=== PATIENT | female | born 1955 | race Caucasian/White ===

== ENCOUNTER → 2016-06-28 | Outpatient (CLI) | payer OTHER ==
[~2016-06-28] MED LIST: ACET-1311 PO; BISA10SU3 PR; CITA10TA4 PO; CITA40TA4 PO; ERGO500037 PO; MOML PO; MULT-506 PO; RISP0.258 PO; SODIENE PR; [UNRECOGNIZED DRUG - CODE] PO; [UNRECOGNIZED DRUG - CODE] TOP
[2016-06-28 10:17] LABS: BLOOD UREA NITROGEN 6 mg/dl (7-18); BUN/CREATININE RATIO 9.5 (10-20); CALCIUM 8.8 mg/dl (8.5-10.1); CARBON DIOXIDE 33 mmol/L (21-32); CHLORIDE 105 mmol/L (98-107); CREATININE 0.62 mg/dl (0.60-1.20); GLUCOSE 79 mg/dl (70-99); POTASSIUM 4.1 mmol/L (3.5-5.1); SODIUM 144 mmol/L (136-145)
[2016-06-28 10:20] LABS: ALB/GLOB RATIO 0.7 (0.9-2); ALKALINE PHOSPHATASE 92 U/L (45-117); ALT/SGPT 15 U/L (12-78); AST/SGOT 14 U/L (15-37)
== END | disposition home or self-care (01) ==
LOC: C.LABUPNIT 09:39
PROVIDERS: ATTEND Family Medicine
DX: I10 Essential (primary) hypertension (principal)

== ENCOUNTER → 2016-07-21 | Outpatient (CLI) | payer OTHER ==
--- NOTE | 2016-07-21 16:13 | MAMMOGRAPHY REPORT ---
BILATERAL FIRST EVER DIGITAL SCREENING MAMMOGRAM WITH CAD: 07/21/2016 CLINICAL HISTORY: Routine screening examination. TECHNIQUE: Bilateral CC and MLO views were attempted. Current study was also evaluated with a Compu ter Aided Detection (CAD) system. COMPARISON: No prior exams were available for comparison. BREAST COMPOSITION: There are scattered areas of fibroglandular density in both breasts. FINDINGS: The exam is markedly suboptimal due to inability of the patient to position for the exam as well as patient motion despite 2 mammography technologists assisting the patient. The MLO views of large amount of posterior tissue. Within the limitations of the exam, there are dermal calcifica tions identified within the left breast. No suspicious mass, architectural distortion or cluster of microcalcifications is seen. IMPRESSION: ACR BI-RADS CATEGORY 1: NEGATIVE Markedly suboptimal exam due to inability of the patient to position for the views as well as patien t motion despite assistance from mammography technologists. Within this limitation, there is no sharmin dence of malignancy within the visualized portions of the breasts. A 1 year screening mammogram is r ecommended. The patient will receive written notification of the results. Approximately 10% of breast cancers are not detected with mammography. A negative mammographic repor t should not delay biopsy if a clinically suggestive mass is present. Leticia Huerta M.D. ay/:07/21/2016 14:38:57 Hospital Admissions Officer: Unique TIAN)(Yoly), [facility] letter sent: Normal 1/2 BI-RADS Code: ACR BI-RADS Category 1: Negative
== END | disposition home or self-care (01) ==
LOC: C.MAMM 13:20
PROVIDERS: ATTEND Family Medicine
DX: Z12.31 Encounter for screening mammogram for malignant neoplasm of breast (principal)

== ENCOUNTER → 2016-11-10 | Outpatient (CLI) | payer OTHER ==
[2016-11-10 09:43] LABS: BASO % 0.5 %; BASO ABS # 0.03 K/uL (0-0.2); COMPLETE YES; EOS % 2.9 %; HEMATOCRIT 41.4 % (37-47); IG% 0.2 %; LYMPH % 32.7 %; MEAN CORPUSCULAR HEMOGLOBIN 30.5 pg (25-34); MEAN CORPUSCULAR HGB CONC 32.1 g/dl (32-36); MEAN PLATELET VOLUME 9.5 fL (7.4-10.4); MONO % 9.5 %; NEUT % 54.2 %; PLATELET COUNT 322 K/uL (130-400); RED BLOOD COUNT 4.36 M/uL (4.2-5.4); WHITE BLOOD COUNT 6.12 K/uL (4.8-10.8)
[2016-11-10 10:10] LABS: ALT/SGPT 13 U/L (12-78); AST/SGOT 10 U/L (15-37); BLOOD UREA NITROGEN 5 mg/dl (7-18); BUN/CREATININE RATIO 8.6 (10-20); CARBON DIOXIDE 34 mmol/L (21-32); CHLORIDE 108 mmol/L (98-107); CREATININE 0.59 mg/dl (0.60-1.20); GLUCOSE 81 mg/dl (70-99); SODIUM 145 mmol/L (136-145)
[2016-11-10 10:21] LABS: ALB/GLOB RATIO 0.8 (0.9-2); ALKALINE PHOSPHATASE 95 U/L (45-117)
--- NOTE | 2016-11-18 11:13 | CODING QUERY MEDICAL NECESSITY ---
CQSUPPORTING DIAGNOSIS NEEDED A supporting diagnosis is required for the test/procedure performed on this patient in order for us to be reimbursed by the patient's insurance. Please provide a supporting diagnosis for the following test/procedure listed below next to the test name along with your signature. *If there is no additional diagnosis for this patient that would support the following test/procedure please document that below next to the test/procedure. Test(s)/Procedure(s) that require a supporting diagnosis: DOS 11/10/16 VITAMIN D TEST Provider Signature: Date: Thank you Michelle Cuellar Health Information Management Once completed, please kindly fax back to [phone] For questions please call [phone]
== END | disposition home or self-care (01) ==
LOC: C.LABUPUNI 08:52
PROVIDERS: ATTEND Family Medicine
DX: F41.9 Anxiety disorder, unspecified (principal); I10 Essential (primary) hypertension; R41.89 Other symptoms and signs involving cognitive functions and awareness; E56.8 Deficiency of other vitamins; E55.9 Vitamin D deficiency, unspecified

== ENCOUNTER 2025-04-12 19:09 | Inpatient (IN) ==
--- NOTE | 2025-04-12 19:29 | Emergency Department Note ---
Impression & Plan Acute pyelonephritis, Fever ED Provider Note NAME: TUNG HERRING AGE: 69 SEX: F : 1955 ARRIVES VIA: Ambulance INFORMANT: Patient, EMS ED PROVIDER(S): Luis Armando Price DO CHIEF COMPLAINT: Fever HPI: The patient is a 69-year-old female who has a history of dementia as well as stroke in the past who presented to the emergency department for fever. The patient is unable to give any history. This is her baseline according to the prehospital personnel. It is unclear what interventions were done prior to the patient coming to the emergency department. ROS: See above HPI for pertinent positives & negatives. A total of 10 systems reviewed and were otherwise negative. PAST MEDICAL HISTORY: See Below PAST SURGICAL HISTORY: See Below FAMILY HISTORY: See Below SOCIAL HISTORY: See Below HOME MEDICATIONS: See Below ALLERGIES: See Below VITALS: See Below PHYSICAL EXAMINATION: GENERAL: The patient is awake to verbal commands. She does not answer questions or follow commands. EYES: The conjunctivae are clear. The pupils are round and reactive. EARS, NOSE, MOUTH AND THROAT: The nose is without any evidence of any deformity. Mucous membranes are dry. NECK: The neck is nontender and supple. RESPIRATORY: Diminished breath sounds with rales are noted throughout. There is no retractions. CARDIOVASCULAR: Regular rate and rhythm noted there no murmurs rubs or gallops normal S1 normal S2. GASTROINTESTINAL: The abdomen is soft. Abdomen is nontender. MUSCULOSKELETAL/EXTREMITIES: There is no evidence of gross deformity full range of motion is noted in the hips and shoulders. SKIN: Skin is warm and dry. There is no significant pedal edema. NEUROLOGIC: The patient is awake to verbal commands. She does not answer questions or follow commands. I am unable to assess orientation at this time. MEDICAL DECISION MAKING: The patient is a 69-year-old female who presented to the emergency department for an evaluation of fever. The patient has a history of stroke in the past. She also has a history of head injury. She does not communicate well. The patient did not have any abdominal tenderness on physical exam. The patient's lung sounds were abnormal but ultimately she was found have signs of urinary tract infection on urinalysis. The patient was treated with IV fluids and IV antibiotics. She was reevaluated multiple times. I discussed her condition with the on-call [facility] hospitalist. They have agreed to evaluate the patient in the emergency department for further management and disposition. Triage Nursing notes reviewed. Prior medical records reviewed Vital Signs: reviewed and remarkable for tachycardia and fever. Differential diagnosis: Viral syndrome, otitis, pharyngitis, pneumonia, influenza, meningitis, urinary tract infection, sepsis, bacteremia, as well as other pathologies. ER treatment provided: See below Diagnostics interpreted by me: ECG: EKG was obtained in the emergency department. My interpretation is sinus tachycardia at 109 bpm. There is no ectopy. Nonspecific ST abnormalities were noted. This was compared to a tracing from February 03, 2014. No changes were noted. Cardiac Monitoring: An order was placed for continuous cardiac monitoring. The monitor shows a rate of 109 bpm with sinus tachycardia. Laboratory studies: As stated above and show below. Imaging studies: See below. Radiographic imaging was reviewed by myself Consultation(s): Dr. De Guzman was notified about the patient. He will evaluate the patient in the emergency department. Past Med/Surg History Problem List (Updated 04/12/25 @ 22:27 by Tami Kurtz PA-C) RLL pneumonia Sepsis Fever (Acute) Acute pyelonephritis (Acute) Dementia (Chronic) Leg swelling (Acute) MR (mental retardation) (Chronic) Right ankle sprain (Acute) Frequent falls (Acute) Forehead abrasion (Acute) UTI (urinary tract infection) (Acute) Head injury (Acute) Right ankle sprain (Acute) Frequent falls (Acute) Forehead abrasion (Acute) UTI (urinary tract infection) (Acute) Head injury (Acute) Diarrhea (Acute) Diarrhea (Acute) Stroke-like symptoms (Acute) Stroke-like symptoms (Acute) Weakness (Acute) Social History Smoking Status: Unknown if ever smoked Feels Safe at Home: Yes Allergies Allergies Allergy/AdvReac Type Severity Reaction Status Date / Time No Known Allergies Allergy Unverified 02/18/17 12:08 Home Meds Home Medications Medication Instructions Recorded Confirmed Acetaminophen (Tylenol) 650 mg PO Q4H PRN Pain or Fever #0 05/22/15 tabs BISACODYL (DULCOLAX) 1 supp NE UD PRN Constipation ##0 05/22/15 MAGNESIUM HYDROXIDE (MILK OF 30 ml PO UD PRN Constipation #0 mL 05/22/15 MAGNESIA) Sodium Phosphate/Biphosphate 1 dose NE UD PRN Constipation #0 05/22/15 (Fleet Enema) BTLS Citalopram (Citalopram 1 tab PO DAILY 90 days #90 tabs 02/18/17 Hydrobromide) ERGOCALCIFEROL (VITAMIN D 02209 50,000 unit PO DAILY #0 caps 02/18/17 UNIT) Multivitamin 1 tab PO DAILY #0 tabs 02/18/17 Risperidone (Risperdal) 0.25 mg PO BID #0 tabs 02/18/17 Results & Data (ED) Vital Signs Vital Signs - 24 hr 04/12/25 19:27 04/12/25 20:05 04/12/25 20:05 Temperature 38.4 C H Temperature Source Rectal Pulse Rate 113 H 109 H 109 H Pulse Rhythm Regular Regular Pulse Strength Normal Respiratory Rate 26 H 28 H Respiratory Effort / Characteristics Non-Labored Spontaneous Respiratory Depth Shallow Respiratory Pattern Regular Blood Pressure 115/88 Blood Pressure Mean 97 Blood Pressure Position Lying Pulse Oximetry 95 94 Oxygen Delivery Method Room Air Room Air Sepsis Recent Fever Within 48 Hours Yes Sepsis New/Unexplained Change in Mental Status No Sepsis Action Taken by Nursing Physician Notified Home Medications Current Medication List: was personally reviewed by me Laboratory Data Attestation: I reviewed the patient's lab results. 04/12/25 19:53 04/12/25 19:53 Lab Results 04/12/25 04/12/25 04/12/25 Range/Units 19:53 20:14 21:05 WBC 16.32 H (4.8-10.8) K/ul RBC 5.10 (4.20-5.40) M/uL Hgb 15.6 (12.0-16.0) g/dl Hct 46.8 (37.0-47.0) % MCV 91.8 (80.0-100.0) fL MCH 30.6 (25.0-34.0) pg MCHC 33.3 (32.0-36.0) g/dL RDW Std Deviation 47.8 H (36.4-46.3) fL RDW Coeff of Clem 14.0 (11.5-14.5) % Plt Count 275 (130-400) K/uL MPV 9.4 (9.4-12.4) fL Immature Gran % (Auto) 0.5 % Neut % (Auto) 92.4 % Lymph % (Auto) 3.6 % [place] % (Auto) 3.1 % Eos % (Auto) 0.2 % Baso % (Auto) 0.2 % Neut # (Auto) 15.07 H (1.40-6.50) K/uL Lymph # (Auto) 0.58 L (1.20-3.40) K/uL Lau[place] # (Auto) 0.51 (0.11-0.59) K/uL Eos # (Auto) 0.04 (0.00-0.50) K/uL Baso # (Auto) 0.04 (0.00-0.20) K/uL Immature Gran # (Auto) 0.08 (0.01-0.20) K/uL PT 10.1 (9.0-12.0) Seconds INR 1.0 (0.9-1.1) APTT 25 (21-31) Seconds PTT Ratio 0.9 VBG pH 7.36 (7.36-7.41) VBG pCO2 52 H (38-50) mmHg VBG pO2 35 mmHg VBG HCO3 29 mmol/L VBG O2 Saturation 60.6 % VBG Base Excess 2.8 mEq/L Sodium 142 (136-145) mmol/L Potassium 4.1 (3.5-5.1) mmol/L Chloride 104 (98-107) mmol/L Carbon Dioxide 29 (21-32) mmol/L Anion Gap 9 (3-11) BUN 13 (6-23) mg/dl Creatinine 0.59 L (0.6-1.2) mg/dl Est Cr Clr Drug Dosing Not Reportable eGFR 97.50 BUN/Creatinine Ratio 22.0 H (10-20) Glucose 123 H (70-99(Fasting)) mg/dl Lactate 2.7 H* (0.4-2.0) mmol/L Calcium 9.3 (8.6-10.3) mg/dl Magnesium 1.9 (1.7-2.4) mg/dl Total Bilirubin 0.4 (0.2-1.0) mg/dl Direct Bilirubin 0.1 (0-0.2) mg/dl AST 34 (13-39) U/L ALT 26 (7-52) U/L Alkaline Phosphatase 120 H (34-104) U/L Troponin I High Sens 8.8 (0-14) pg/ml Total Protein 7.0 (6.0-8.3) gm/dl Albumin 3.2 L (3.4-5.0) gm/dl Procalcitonin 0.71 H (0-0.5) ng/ml Urine Color Yellow Urine Appearance Cloudy A (Clear) Urine pH 5.0 (4.5-7.5) Ur Specific [place] 1.019 (1.000-1.030) Urine Protein Trace H (Negative) Urine Glucose (UA) Negative (Negative) Urine Ketones Negative (Negative) Urine Blood 1+ H (Negative) Urine Nitrite Negative (Negative) Urine Bilirubin Negative (Negative) Urine Urobilinogen Negative (Negative) Ur Leukocyte Esterase 2+ H (Negative) Urine WBC (Auto) >50 H (0-5) /hpf Urine RBC (Auto) 6-10 H (0-2) /hpf U Hyaline Cast (Auto) 0-2 (0-2) /lpf U Epithel Cells (Auto) 0-2 (0-2) /hpf Urine Bacteria (Auto) 4+ H (None Seen) Urine Comment SARS-CoV-2 (PCR) NEGATIVE (Negative) Influenza Type A (PCR) Negative (Neg) Influenza Type B (PCR) Negative (Neg) RSV (RT-PCR) Negative (Neg) 04/12/25 Range/Units 21:53 WBC (4.8-10.8) K/ul RBC (4.20-5.40) M/uL Hgb (12.0-16.0) g/dl Hct (37.0-47.0) % MCV (80.0-100.0) fL MCH (25.0-34.0) pg MCHC (32.0-36.0) g/dL RDW Std Deviation (36.4-46.3) fL RDW Coeff of Clem (11.5-14.5) % Plt Count (130-400) K/uL MPV (9.4-12.4) fL Immature Gran % (Auto) % Neut % (Auto) % Lymph % (Auto) % [place] % (Auto) % Eos % (Auto) % Baso % (Auto) % Neut # (Auto) (1.40-6.50) K/uL Lymph # (Auto) (1.20-3.40) K/uL [place] # (Auto) (0.11-0.59) K/uL Eos # (Auto) (0.00-0.50) K/uL Baso # (Auto) (0.00-0.20) K/uL Immature Gran # (Auto) (0.01-0.20) K/uL PT (9.0-12.0) Seconds INR (0.9-1.1) APTT (21-31) Seconds PTT Ratio VBG pH (7.36-7.41) VBG pCO2 (38-50) mmHg VBG pO2 mmHg VBG HCO3 mmol/L VBG O2 Saturation % VBG Base Excess mEq/L Sodium (136-145) mmol/L Potassium (3.5-5.1) mmol/L Chloride (98-107) mmol/L Carbon Dioxide (21-32) mmol/L Anion Gap (3-11) BUN (6-23) mg/dl Creatinine (0.6-1.2) mg/dl Est Cr Clr Drug Dosing eGFR BUN/Creatinine Ratio (10-20) Glucose (70-99(Fasting)) mg/dl Lactate 2.1 H* (0.4-2.0) mmol/L Calcium (8.6-10.3) mg/dl Magnesium (1.7-2.4) mg/dl Total Bilirubin (0.2-1.0) mg/dl Direct Bilirubin (0-0.2) mg/dl AST (13-39) U/L ALT (7-52) U/L Alkaline Phosphatase (34-104) U/L Troponin I High Sens (0-14) pg/ml Total Protein (6.0-8.3) gm/dl Albumin (3.4-5.0) gm/dl Procalcitonin (0-0.5) ng/ml Urine Color Urine Appearance (Clear) Urine pH (4.5-7.5) Ur Specific [place] (1.000-1.030) Urine Protein (Negative) Urine Glucose (UA) (Negative) Urine Ketones (Negative) Urine Blood (Negative) Urine Nitrite (Negative) Urine Bilirubin (Negative) Urine Urobilinogen (Negative) Ur Leukocyte Esterase (Negative) Urine WBC (Auto) (0-5) /hpf Urine RBC (Auto) (0-2) /hpf U Hyaline Cast (Auto) (0-2) /lpf U Epithel Cells (Auto) (0-2) /hpf Urine Bacteria (Auto) (None Seen) Urine Comment SARS-CoV-2 (PCR) (Negative) Influenza Type A (PCR) (Neg) Influenza Type B (PCR) (Neg) RSV (RT-PCR) (Neg) Administered Medications Discontinued Medications Acetaminophen (Ofirmev) 1,000 mg in 100 mls @ 400 mls/hr IV NOW STA Stop: 04/12/25 19:33 Last Infusion: 04/12/25 20:19 Dose: Infused Documented By: Admin: 04/12/25 20:04 Dose: 400 mls/hr Documented By: JAQUAN Sodium Chloride (Nss) 1,000 mls @ 999 mls/hr IV .Q1H1M ONE Stop: 04/12/25 21:13 Last Infusion: 04/12/25 21:19 Dose: Infused Documented By: Admin: 04/12/25 20:18 Dose: 999 mls/hr Documented By: alessandra Ceftriaxone Sodium (Rocephin) 2,000 mg in 50 mls @ 100 mls/hr IV NOW STA Stop: 04/12/25 21:06 Last Infusion: 04/12/25 22:22 Dose: Infused Documented By: Admin: 04/12/25 21:52 Dose: 100 mls/hr Documented By: alessandra Imaging Data Attestation: I personally reviewed and interpreted this imaging study as follows: My Impression: 1 view chest x-ray was obtained in the emergency department. My interpretation is no free air or definite infiltrate, final report below. Radiologist's Impression: Chest X-Ray 04/12/25 19:14 Chest radiograph, one view History: Sepsis. Comparison: None. Findings: Partially included intramedullary orthopedic hardware left humerus. Lower thoracic spine fusion hardware. Cardiomediastinal silhouette is otherwise normal. Confluent or social densities bilateral pulmonary bases right greater than left. Pulmonary vasculature is normal. Remaining lungs are clear. Blunting bilateral costophrenic angles. Remote posterior lateral right rib fractures. Impression: Nonspecific bibasilar confluent interstitial opacities with small effusions. Pneumonia not excluded. Electronically signed by Beto Monroy 04-12-2025 8:51 PM Discharge Plan Visit Data Chief Complaint: Fever Stated Complaint: FEVER ED Provider: Luis Armando Price Discharge Problem: Acute pyelonephritis, Fever Patient Disposition: Being Evaluated by Hospitalist Condition: Fair Forms Stand Alone Forms: My [facility] Prescriptions Prescriptions: No Action Acetaminophen (Tylenol) 325 MG tablet 650 mg PO Q4H PRN (Reason: Pain or Fever) Qty: 0 Patient Comments: APPLY NEEDED FOR MILD PAIN OR FOR ELEVATED TEMPERATURE GREATER THAN 101 F. DO NOT EXCEED 3 GM APAP/24 HOURS. BISACODYL (DULCOLAX) 10 MG SUP 1 supp NE UD PRN (Reason: Constipation) Qty: 0 Patient Comments: NEEDED FOR NO BOWEL MOVEMENT IN 4 DAYS. MAGNESIUM HYDROXIDE (MILK OF MAGNESIA) 30 ML suspension 30 ml PO UD PRN (Reason: Constipation) Qty: 0 Patient Comments: NEEDED FOR NO BOWEL MOVEMENT IN 9 SHIFTS. Sodium Phosphate/Biphosphate (Fleet Enema) MELITA 1 dose NE UD PRN (Reason: Constipation) Qty: 0 Patient Comments: IF AFTER 4 HOURS DULCOLAX SUPPOSITORY WAS INEFFECTIVE GIVE FLEET ENEMA. Citalopram (Citalopram Hydrobromide) 40 MG tablet 1 tab PO DAILY 90 Days Qty: 90 ERGOCALCIFEROL (VITAMIN D 44162 UNIT) 50,000 UNIT capsule 50,000 unit PO DAILY Qty: 0 Multivitamin tablet 1 tab PO DAILY Qty: 0 Risperidone (Risperdal) 0.25 MG tablet 0.25 mg PO BID Qty: 0 Referrals Referrals: [facility] [Primary Care Provider] -
[2025-04-12] MEDS: ACETAMINOPHEN 1,000 MG/100 ML VIAL IV STA (20:04)
[2025-04-12 20:05] LABS: Base Excess VBG 2.8 mEq/L; HCO3 VBG 29 mmol/L; Oxygen Saturation VBG 60.6 %; PCO2 VBG 52 mmHg (38-50); PO2 VBG 35 mmHg; pH VBG 7.36 (7.36-7.41)
[2025-04-12 20:12] LABS: Hematocrit (blood only) 46.8 % (37.0-47.0); Hemoglobin 15.6 g/dl (12.0-16.0); Mean Corpuscular Hemoglobin 30.6 pg (25.0-34.0); Mean Corpuscular Volume 91.8 fL (80.0-100.0); Platelet Count 275 K/uL (130-400); RDW Standard Deviation 47.8 fL (36.4-46.3); Red Blood Count 5.10 M/uL (4.20-5.40); White Blood Count 16.32 K/ul (4.8-10.8)
[2025-04-12] MEDS: SODIUM CHLORIDE 0.9% 1,000 ML IV ONE (20:18)
[2025-04-12 20:30] LABS: Alanine Aminotransferase 26 U/L (7-52); Albumin Level 3.2 gm/dl (3.4-5.0); Alkaline Phosphatase 120 U/L (34-104); Anion Gap 9 (3-11); Bilirubin,Total 0.4 mg/dl (0.2-1.0); Blood Urea Nitrogen 13 mg/dl (6-23); Calcium 9.3 mg/dl (8.6-10.3); Carbon Dioxide 29 mmol/L (21-32); Chloride 104 mmol/L (98-107); Glucose 123 mg/dl (70-99(Fasting)); Magnesium 1.9 mg/dl (1.7-2.4); Potassium 4.1 mmol/L (3.5-5.1); Sodium 142 mmol/L (136-145); Total Protein 7.0 gm/dl (6.0-8.3)
[2025-04-12 20:33] LABS: Immature Granulocytes # (auto) 0.08 K/uL (0.01-0.20); Immature Granulocytes % (auto) 0.5 %
[2025-04-12 20:38] LABS: INR 1.0 (0.9-1.1); Partial Thromboplastin Time 25 Seconds (21-31); Prothrombin Time 10.1 Seconds (9.0-12.0)
--- NOTE | 2025-04-12 20:53 | XRay Report ---
Chest radiograph, one view History: Sepsis. Comparison: None. Findings: Partially included intramedullary orthopedic hardware left humerus. Lower thoracic spine fusion hardware. Cardiomediastinal silhouette is otherwise normal. Confluent or social densities bilateral pulmonary bases right greater than left. Pulmonary vasculature is normal. Remaining lungs are clear. Blunting bilateral costophrenic angles. Remote posterior lateral right rib fractures. Impression: Nonspecific bibasilar confluent interstitial opacities with small effusions. Pneumonia not excluded. Electronically signed by Beto Monroy 04-12-2025 8:51 PM
[2025-04-12 21:13] LABS: Influenza A virus by PCR Negative (Neg); Influenza B virus by PCR Negative (Neg); SARS CoV2 RNA(COVID-19) Ceph NEGATIVE (Negative)
[2025-04-12] MEDS: cefTRIAXone SODIUM 2,000 MG/50 ML BAG IV STA (21:52)
--- NOTE | 2025-04-12 22:00 | History & Physical Report ---
Date of Service April 12, 2025 Assessment & Plan (1) Sepsis: (2) UTI (urinary tract infection): (3) RLL pneumonia: (4) Dementia: Plan Patient is a 69-year-old female with a past medical history of TBI/dementia and is nonverbal at baseline. She presented via EMS from [facility] as they were concerned for a febrile seizure given she has a reported history of. She was found to meet SIRS criteria with a source secondary to UTI and possible right lower lobe pneumonia. #Sepsis/UTI/RLL PNA - UA concerning for infection with 2+ LE, >50 WBC, +4 bacteria. CXR read as nonspecific bibasilar opacities with small effusion (PNA cannot be excluded); reviewed personally and appears as though patient has RLL pneumonia. Non-hypoxic at time of admission, VBG WNL. Renal function stable. + SIRS: WBC 16.32 with neutrophil predominance, tachypneic (RR 28) tachycardic (rate 113), febrile 38.4C on arrival to ED - lactate 2.7 -> 2.1 after 1L NSS; repeat with am labs - procal 0.71 - Sepsis fluid bolus for actual body weight = 1983.00mL - given 1L NSS in ED - additional 1L NSS bolus ordered - Continue fluid resuscitation overnight with LR @ 125 ml/hr x 2L - No previous positive cultures within EMR - Given Rocephin 2G IV in the ED; will transition to Unasyn to cover for possible aspiration pneumonia - MRSA nares ordered, add coverage if positive - duo-nebs prn - Follow blood and urine culture - Trend CBC - Tylenol prn for fever - Given concern for aspiration and appears as though patient would be unable to tolerate p.o. intake based on clinical exam on admission Will make n.p.o., hold p.o. medications, aspiration precautions, and speech eval #Hx TBI/moderate dementia with mood disturbances - Reportedly nonverbal at baseline. Responds to verbal stimuli, unable to follow commands on admission. - holding risperidone and Cymbalta with above - fall and aspiration precautions - at higher risk for hospital acquired delirium - promote good sleep wake cycles, oob as tolerated, etc. #Hx febrile seizures - sent from nursing facility due to concern for this with history. Unclear as to patient's history. - given patient's age, low concern - Tylenol prn VTE ppx: Lovenox daily Dispo: PCU Admission and Anticipated Discharge Date Admission Date: 04/12/25 History of Present Illness Chief Complaint: fever Primary Care Provider: [facility] Patient is a 69-year-old female with a past medical history of TBI/dementia and is nonverbal at baseline. She presented via EMS from [facility] as they were concerned for a febrile seizure given she has a reported history of. She was found to meet SIRS criteria with a source secondary to UTI and possible right lower lobe pneumonia. Patient seen at bedside. She is nonverbal however responds to verbal stimuli. She is unable to follow any commands. There is no family at bedside. Report from [facility] reportedly that they were concerned about a febrile seizure because she has a history of. Unable to obtain any ROS. Medical records reviewed. POLST form reviewed DNR/DNI with limited measures, agreeable to IV ABX and IV fluids. Allergies Allergy/AdvReac Type Severity Reaction Status Date / Time No Known Allergies Allergy Unverified 02/18/17 12:08 Home Medications Medication Instructions Recorded Confirmed Type Acetaminophen (Tylenol) 650 mg PO Q4H PRN Pain or Fever #0 05/22/15 History tabs BISACODYL (DULCOLAX) 1 supp DC UD PRN Constipation ##0 05/22/15 History MAGNESIUM HYDROXIDE (MILK OF 30 ml PO UD PRN Constipation #0 mL 05/22/15 History MAGNESIA) Sodium Phosphate/Biphosphate 1 dose DC UD PRN Constipation #0 05/22/15 History (Fleet Enema) BTLS Citalopram (Citalopram 1 tab PO DAILY 90 days #90 tabs 02/18/17 History Hydrobromide) ERGOCALCIFEROL (VITAMIN D 96264 50,000 unit PO DAILY #0 caps 02/18/17 History UNIT) Multivitamin 1 tab PO DAILY #0 tabs 02/18/17 History Risperidone (Risperdal) 0.25 mg PO BID #0 tabs 02/18/17 History Past Med/Surg History Problem List (Updated 04/12/25 @ 22:27 by Tami Kurtz PA-C) RLL pneumonia Sepsis Fever (Acute) Acute pyelonephritis (Acute) Dementia (Chronic) Leg swelling (Acute) MR (mental retardation) (Chronic) Right ankle sprain (Acute) Frequent falls (Acute) Forehead abrasion (Acute) UTI (urinary tract infection) (Acute) Head injury (Acute) Right ankle sprain (Acute) Frequent falls (Acute) Forehead abrasion (Acute) UTI (urinary tract infection) (Acute) Head injury (Acute) Diarrhea (Acute) Diarrhea (Acute) Stroke-like symptoms (Acute) Stroke-like symptoms (Acute) Weakness (Acute) Social History Smoking Status: Unknown if ever smoked Hx Alcohol Use: No Hx Substance Use: No Preferred Language: Pashto Communication Ability: Impaired Chief Operating Officer Required: No Beliefs That Will Affect Care: None Current Living Situation: Senior Living Other Information That Helps Us Care for You: No Feels Safe at Home: Yes Safety Concerns: Feels Safe At This Time Assistive Devices: Mechanical Lift and Wheelchair Review of Systems Review of Systems: see HPI Physical Exam Physical Exam: The patient is sleeping, responds to verbal stimuli, unable to follow commands. HEENT- Mucous membranes dry. Hearing grossly intact. Heart-normal S1 and S2. No murmurs, rubs or gallops. Lungs-decreased bilaterally, no respiratory distress, no accessory muscle use. Abdomen-normal bowel sounds and soft. No ascites noted. Non-tender. Extremities- no clubbing, cyanosis, or edema. Results & Data Results & Data Vital Signs (Past 12 Hours) Vital Signs Temp Pulse Resp BP Pulse Ox O2 Del Method 04/12/25 20:05 109 H 28 H 94 Room Air 04/12/25 20:05 38.4 C H 109 H 26 H 115/88 95 Room Air 04/12/25 19:27 113 H Laboratory Results Reviewed CBC, PT/INR, CMP, Pro-Santos, covid/flu/rsv swab, UA, troponin, mag, VBG, lactate Diagnostic Findings reviewed CXR Medications Administered ED - Rocephin 2g IV, 1L NSS bolus, tylenol 1g IV admission - 1L NSS bolus, LR @ 125 ml/hr, unasyn ECG Additional Comments: sinus tachycardia rate 109 qtc 425 Code Status & VTE Plan Code Status DNR/DNI VTE Prophylaxis Plan VTE Prophylaxis will be ordered: Yes Supervising Physician Co-Signing Physician Notes Attending addendum: I have physically seen this patient, have supervised the EMMANUEL's activities, and agree with the H&P unless as otherwise noted. Assessment and Plan: The patient is a 69-year-old female with past medical history including TBI/de mentia, and is nonverbal at baseline. She was referred to the emergency department from [facility] via EMS, due to concerns regarding a possible febrile seizure. Evaluation in the emergency department included findings of urinary tract infection, and pneumonia, suggestive of SIRS. Sepsis/UTI/right lower lobe pneumonia- Follow urine culture sensitivity Follow sputum culture sensitivity Follow-up blood culture and sensitivity Lactate 2.7 follow-up 2.1 after 1 L normal saline bolus, will repeat in the a.m. Patient to receive additional 1 L normal saline bolus, then maintenance LR at 125 mL/h. Given Rocephin 2 g IV in ED Admit on Unasyn 3 g IV every 6 hours MRSA swab ordered and pending DuoNebs every 2 hours as needed Acetaminophen 650 mg by mouth every 6 hours as needed for mild pain or fever N.p.o. due to concerns regarding possible aspiration Speech evaluation History of TBI/moderate dementia with mood disturbance- Nonverbal at baseline Does respond to verbal stimuli Hold risperidone and Cymbalta for now History of febrile seizures- Seizure protocol. Noted during admission, will order appropriate testing EEG and MRI of brain Acetaminophen 650 mg by mouth every 6 hours as needed for mild pain or fever Remaining orders and notations as noted PG Care Time/CCT Total # of Minutes Spent Total Time Spent with Patient: Total time spent is greater than 50% in coordination of care (as documented) at patient's floor/unit and/or counseling patient: Coding Level of Care Code 10273 INT INP/OBS CARE 3/75MIN Diagnoses Sepsis A41.9 UTI (urinary tract infection) N39.0 RLL pneumonia J18.9 Dementia F03.90
[2025-04-12 22:03] LABS: Appearance Urine Cloudy (Clear); Bacteria Urine Automated 4+ (None Seen); Cast Urine Automated 0-2 /lpf (0-2); Epithelial Cell Urine Auto 0-2 /hpf (0-2); Glucose Urine UA Negative (Negative); WBC Urine Automated >50 /hpf (0-5)
[2025-04-12] MEDS: LACTATED RINGER'S 1,000 ML IV SCH (22:43)
[2025-04-12] MEDS: SODIUM CHLORIDE 0.9% 1,000 ML IV SCH (22:50)
[2025-04-13] MEDS ORDERED: ONDANSETRON INJ 2 MG/ML 2 ML VIAL IV PRN (00:59)
[2025-04-13] MEDS ORDERED: ACETAMINOPHEN 1,000 MG/100 ML VIAL IV PRN (00:59)
[2025-04-13] MEDS ORDERED: ALBUT/IPRATROP 3MG/0.5MG NEB 3 ML VIAL NEB PRN (00:59)
[2025-04-13] MEDS: Patient's HEIGHT &/or WEIGHT Needed STA (04:14)
[2025-04-13] MEDS: AMPICILLIN/SULBACTAM SOD 3,000 MG/100 ML BAG IV SCH (04:35)
[2025-04-13 06:24] LABS: Hematocrit (blood only) 45.5 % (37.0-47.0); Hemoglobin 14.2 g/dl (12.0-16.0); Immature Granulocytes # (auto) 0.15 K/uL (0.01-0.20); Immature Granulocytes % (auto) 0.7 %; Mean Corpuscular Hemoglobin 29.1 pg (25.0-34.0); Mean Corpuscular Volume 93.2 fL (80.0-100.0); Platelet Count 180 K/uL (130-400); RDW Standard Deviation 49.1 fL (36.4-46.3); Red Blood Count 4.88 M/uL (4.20-5.40); White Blood Count 23.06 K/ul (4.8-10.8)
[2025-04-13 06:41] LABS: Alanine Aminotransferase 23.0 U/L (7-52); Albumin Globulin Ratio 0.8 (0.9-2); Albumin Level 2.8 gm/dl (3.4-5.0); Alkaline Phosphatase 88.0 U/L (34-104); Anion Gap 5.0 (3-11); Bilirubin,Total 0.5 mg/dl (0.2-1.0); Blood Urea Nitrogen 11.0 mg/dl (6-23); Calcium 8.8 mg/dl (8.6-10.3); Carbon Dioxide 27.0 mmol/L (21-32); Chloride 109.0 mmol/L (98-107); Creatinine Clr Calc Pharmacy 86.5 ml/min; Globulin 3.4 gm/dl (2.5-4.0); Glucose 124.0 mg/dl (70-99(Fasting)); Magnesium 1.8 mg/dl (1.7-2.4); Potassium 4.4 mmol/L (3.5-5.1); Sodium 141.0 mmol/L (136-145); Total Protein 6.2 gm/dl (6.0-8.3)
[2025-04-13] MEDS: ENOXAPARIN INJ 40 MG/0.4 ML SYR SQ SCH (07:34)
--- NOTE | 2025-04-13 09:13 | Hospitalist Progress Note ---
Date of Service April 13, 2025 Assessment & Plan (1) Sepsis: (2) UTI (urinary tract infection): (3) RLL pneumonia: (4) Dementia: Plan Patient is a 69-year-old female with a past medical history of TBI/dementia and is nonverbal at baseline. She presented via EMS from [facility] as they were concerned for a febrile seizure given she has a reported history of. She was found to meet SIRS criteria with a source secondary to UTI and possible right lower lobe pneumonia. #Sepsis/UTI/RLL PNA - UA concerning for infection with 2+ LE, >50 WBC, +4 bacteria. CXR read as nonspecific bibasilar opacities with small effusion (PNA cannot be excluded); reviewed personally and appears as though patient has RLL pneumonia. Non-hypoxic at time of admission, VBG WNL. Renal function stable. + SIRS: WBC 16.32 with neutrophil predominance, tachypneic (RR 28) tachycardic (rate 113), febrile 38.4C on arrival to ED - lactate 2.7 -> 2.1 after 1L NSS; repeat with am labs - procal 0.71 - Sepsis fluid bolus for actual body weight = 1983.00mL - given 1L NSS in ED - additional 1L NSS bolus ordered - Continue fluid resuscitation overnight with LR @ 125 ml/hr x 2L - No previous positive cultures within EMR - Given Rocephin 2G IV in the ED; started on Unasyn, but will change to Zosyn given rising WBC and lactate - MRSA neg - duo-nebs prn - Follow blood and urine culture - Trend CBC - Tylenol prn for fever - Given concern for aspiration and appears as though patient would be unable to tolerate p.o. intake based on clinical exam on admission Will make n.p.o., hold p.o. medications, aspiration precautions, and speech eval #Hx TBI/moderate dementia with mood disturbances - Reportedly nonverbal at baseline. Responds to verbal stimuli, unable to follow commands on admission. - holding risperidone and Cymbalta with above - fall and aspiration precautions - at higher risk for hospital acquired delirium - promote good sleep wake cycles, oob as tolerated, etc. #Hx febrile seizures - sent from nursing facility due to concern for this with history. Unclear as to patient's history. - given patient's age, low concern - Tylenol prn VTE ppx: Lovenox daily Dispo: PCU Admission and Anticipated Discharge Date Admission Date: April 12, 2025 Results & Data Results & Data Vital Signs (Past 12 Hours) Vital Signs Temp Pulse Pulse Resp BP BP Pulse Ox 04/13/25 07:39 36.5 C 76 16 101/49 L 95 04/13/25 04:58 04/13/25 04:05 80 04/13/25 03:50 36.6 C 79 18 112/53 L 96 04/13/25 02:03 04/13/25 01:41 36.6 C 83 18 110/63 95 04/13/25 00:00 92 H 20 122/56 L 98 04/12/25 23:27 94 H 04/12/25 22:00 96 H 28 H 124/65 94 Pulse Ox O2 Del Method O2 Del Method 04/13/25 07:39 Room Air 04/13/25 04:58 Room Air 04/13/25 04:05 04/13/25 03:50 Room Air 04/13/25 02:03 95 Room Air 04/13/25 01:41 Room Air 04/13/25 00:00 Room Air 04/12/25 23:27 04/12/25 22:00 Room Air PG Care Time/CCT Total # of Minutes Spent Total Time Spent with Patient: Total time spent is greater than 50% in coordination of care (as documented) at patient's floor/unit and/or counseling patient: Coding Diagnoses Sepsis A41.9 UTI (urinary tract infection) N39.0 RLL pneumonia J18.9 Dementia F03.90
[2025-04-13] MEDS: PIPERACILLIN/TAZOBACTAM 4.5 GM/100 ML BAG IV ONE (10:20)
[2025-04-13] MEDS: PIPERACILLIN/TAZOBACTAM 4.5 GM/100 ML BAG IV SCH (15:34)
--- NOTE | 2025-04-13 16:47 | Electrocardiogram Report ---
Test Reason : Blood Pressure : */* mmHG Vent. Rate : 109 BPM Atrial Rate : 109 BPM P-R Int : 116 ms QRS Dur : 74 ms QT Int : 316 ms P-R-T Axes : 91 69 84 degrees QTcB Int : 425 ms Sinus tachycardia Nonspecific ST abnormality Abnormal ECG When compared with ECG of 03-Feb-2014 21:48, No significant change was found Confirmed by Chet Cochran ([id number]) on 04/13/2025 4:46:39 PM Referred By: Confirmed By: Chet Cochran
--- NOTE | 2025-04-13 18:19 | Hospitalist Progress Note ---
Date of Service April 13, 2025 Assessment & Plan (1) Sepsis: (2) UTI (urinary tract infection): (3) RLL pneumonia: (4) Dementia: Plan Patient is a 69-year-old female with a past medical history of TBI/dementia and is nonverbal at baseline. She presented via EMS from [facility] as they were concerned for a febrile seizure given she has a reported history of. She was found to meet SIRS criteria with a source secondary to UTI and possible right lower lobe pneumonia. #Sepsis/UTI/RLL PNA - UA concerning for infection with 2+ LE, >50 WBC, +4 bacteria. CXR read as nonspecific bibasilar opacities with small effusion (PNA cannot be excluded); reviewed personally and appears as though patient has RLL pneumonia. Non-hypoxic at time of admission, VBG WNL. Renal function stable. + SIRS: WBC 16.32 with neutrophil predominance, tachypneic (RR 28) tachycardic (rate 113), febrile 38.4C on arrival to ED - lactate 2.7 -> 2.1 after 1L NSS; repeat with am labs - procal 0.71 - Sepsis fluid bolus for actual body weight = 1983.00mL - given 1L NSS in ED - additional 1L NSS bolus ordered - Continue fluid resuscitation overnight with LR @ 125 ml/hr x 2L - No previous positive cultures within EMR - Given Rocephin 2G IV in the ED; abx changed from Unasyn to Zosyn to cover broadly - MRSA neg - duo-nebs prn - Follow blood and urine culture - Trend CBC - Tylenol prn for fever - Given concern for aspiration and appears as though patient would be unable to tolerate p.o. intake based on clinical exam on admission Will make n.p.o., hold p.o. medications, aspiration precautions - LOAN DOCUMENTATION SPECIALIST recs appreciated- cont NPO, ice chips ok for comfort #Hx TBI/moderate dementia with mood disturbances - Reportedly nonverbal at baseline. Responds to verbal stimuli, unable to follow commands on admission. - holding risperidone and Cymbalta with above - fall and aspiration precautions - at higher risk for hospital acquired delirium - promote good sleep wake cycles, oob as tolerated, etc. #Hx febrile seizures - sent from nursing facility due to concern for this with history. Unclear as to patient's history. - given patient's age, low concern - Tylenol prn VTE ppx: Lovenox daily Dispo: PCU Admission and Anticipated Discharge Date Admission Date: April 12, 2025 Subjective Pt nonverbal Does seem to nod appropriately to questions Review of Systems Review of Systems: Comprehensive ROS completed and is otherwise negative. Physical Exam Physical Exam: Gen: no acute distress, lying in bed comfortable HEENT: NC/AT, MMM Lungs: nonlabored breathing, basilar crackles noted CVS: s1s2nl, RRR Abd: nl bowel sounds, soft, NT / ND : no arenas Ext: no edema Neuro: awake and follows commands Psych: calm, cooperative Results & Data Results & Data Vital Signs (Past 12 Hours) Vital Signs Temp Pulse Pulse Resp BP Pulse Ox O2 Del Method 04/13/25 15:42 37.0 C 78 18 97/53 L 97 Room Air 04/13/25 14:50 77 04/13/25 11:05 36.6 C 76 16 94/46 L 96 Room Air 04/13/25 07:39 36.5 C 76 16 101/49 L 95 Room Air PG Care Time/CCT Total # of Minutes Spent Total Time Spent with Patient: Total time spent is greater than 50% in coordination of care (as documented) at patient's floor/unit and/or counseling patient: Coding Level of Care Code 46415 SUB INP/OBS CARE 3/50MIN Diagnoses Sepsis A41.9 UTI (urinary tract infection) N39.0 RLL pneumonia J18.9 Dementia F03.90
[2025-04-13] MEDS: LACTATED RINGER'S 1,000 ML IV SCH (22:44)
[2025-04-13] MEDS: ALBUMIN 25% 25 GM/100 ML VIAL IV ONE (22:47)
[2025-04-14 08:33] LABS: Hematocrit (blood only) 42.6 % (37.0-47.0); Hemoglobin 13.5 g/dl (12.0-16.0); Immature Granulocytes # (auto) 0.06 K/uL (0.01-0.20); Immature Granulocytes % (auto) 0.5 %; Mean Corpuscular Hemoglobin 30.1 pg (25.0-34.0); Mean Corpuscular Volume 95.1 fL (80.0-100.0); Platelet Count 155 K/uL (130-400); RDW Standard Deviation 50.0 fL (36.4-46.3); Red Blood Count 4.48 M/uL (4.20-5.40); White Blood Count 11.72 K/ul (4.8-10.8)
[2025-04-14 08:43] LABS: Anion Gap 7.0 (3-11); Calcium 8.7 mg/dl (8.6-10.3); Carbon Dioxide 26.0 mmol/L (21-32); Chloride 107.0 mmol/L (98-107); Potassium 3.9 mmol/L (3.5-5.1); Sodium 140.0 mmol/L (136-145)
[2025-04-14 08:49] LABS: Blood Urea Nitrogen 7.0 mg/dl (6-23); Creatinine Clr Calc Pharmacy 99.7 ml/min; Glucose 92.0 mg/dl (70-99(Fasting))
[2025-04-14] MEDS: PLASMA-LYTE A 1,000 ML IV SCH (09:30)
[2025-04-14 09:36] LABS: Albumin Level 3.1 gm/dl (3.4-5.0); Bilirubin,Total 0.6 mg/dl (0.2-1.0)
[2025-04-14 09:42] LABS: Alanine Aminotransferase 23.0 U/L (7-52); Alkaline Phosphatase 92.0 U/L (34-104); Total Protein 6.6 gm/dl (6.0-8.3)
--- NOTE | 2025-04-14 15:36 | Hospitalist Progress Note ---
Date of Service April 14, 2025 Assessment & Plan (1) Sepsis: (2) UTI (urinary tract infection): (3) RLL pneumonia: (4) Dementia: Plan Patient is a 69-year-old female with a past medical history of TBI/dementia, previously stated non-verbal, however able to communicate verbally with prompting. She presented via EMS from [facility] as they were concerned for a febrile seizure given she has a reported history of. She was found to meet SIRS criteria with a source secondary to UTI and possible right lower lobe pneumonia. #Sepsis/UTI/RLL PNA - UA concerning for infection with 2+ LE, >50 WBC, +4 bacteria. CXR read as nonspecific bibasilar opacities with small effusion (PNA cannot be excluded); reviewed personally and appears as though patient has RLL pneumonia. Non-hypoxic at time of admission, VBG WNL. Renal function stable. + SIRS: WBC 16.32 with neutrophil predominance, tachypneic (RR 28) tachycardic (rate 113), febrile 38.4C on arrival to ED - lactate 2.7 -> 2.1 after 1L NSS; peaked to 3.2 and now trended normal to 1.1 - procal 0.71 - Sepsis fluid bolus for actual body weight = 1983.00mL - given 1L NSS in ED - additional 1L NSS bolus ordered - Continue fluid resuscitation overnight with LR @ 125 ml/hr x 2L - No previous positive cultures within EMR - Given Rocephin 2G IV in the ED and pt started on Unasyn at the time of admission, change to Zosyn to cover broadly - MRSA neg - duo-nebs prn - Follow blood and urine culture - Trend CBC - Tylenol prn for fever - Given concern for aspiration and appears as though patient would be unable to tolerate p.o. intake based on clinical exam on admission Will make n.p.o., hold p.o. medications, aspiration precautions - baseline on thickened liquid with pureed diet - OCCUPATIONAL SAFETY AND HEALTH MANAGER recs appreciated- cont NPO, ice chips ok for comfort , plan for video swallow on Tuesday #Hx TBI/moderate dementia with mood disturbances - Reportedly nonverbal at baseline. Responds to verbal stimuli, unable to follow commands on admission. - holding risperidone and Cymbalta with above - fall and aspiration precautions - at higher risk for hospital acquired delirium - promote good sleep wake cycles, oob as tolerated, etc. #Hx febrile seizures - sent from nursing facility due to concern for this with history. Unclear as to patient's history. - given patient's age, low concern - Tylenol prn VTE ppx: Lovenox daily Admission and Anticipated Discharge Date Admission Date: April 12, 2025 Subjective Pt was able to speak this morning and appropriately. Review of Systems Review of Systems: Comprehensive ROS completed and is otherwise negative. Physical Exam Physical Exam: Gen: no acute distress, lying in bed comfortable HEENT: NC/AT, MMM Lungs: nonlabored breathing, basilar crackles noted CVS: s1s2nl, RRR Abd: nl bowel sounds, soft, NT / ND : no arenas Ext: no edema Neuro: awake and follows commands and verbally answers questions Psych: calm, cooperative Results & Data Results & Data Vital Signs (Past 12 Hours) Vital Signs Temp Pulse Pulse Resp BP Pulse Ox O2 Del Method 04/14/25 11:35 36.3 C L 73 18 116/57 L 97 Room Air 04/14/25 07:43 36.8 C 75 16 114/49 L 97 Room Air 04/14/25 05:38 76 04/14/25 04:00 36.4 C L 78 17 112/56 L 98 Room Air PG Care Time/CCT Total # of Minutes Spent Total Time Spent with Patient: Total time spent is greater than 50% in coordination of care (as documented) at patient's floor/unit and/or counseling patient: Coding Level of Care Code 43953 SUB INP/OBS CARE 3/50MIN Diagnoses Sepsis A41.9 UTI (urinary tract infection) N39.0 RLL pneumonia J18.9 Dementia F03.90
[2025-04-15 07:19] LABS: Hematocrit (blood only) 39.8 % (37.0-47.0); Hemoglobin 13.1 g/dl (12.0-16.0); Mean Corpuscular Hemoglobin 30.3 pg (25.0-34.0); Mean Corpuscular Volume 92.1 fL (80.0-100.0); Platelet Count 173 K/uL (130-400); RDW Standard Deviation 48.2 fL (36.4-46.3); Red Blood Count 4.32 M/uL (4.20-5.40); White Blood Count 8.54 K/ul (4.8-10.8)
[2025-04-15 07:42] LABS: Anion Gap 7.0 (3-11); Calcium 8.2 mg/dl (8.6-10.3); Carbon Dioxide 26.0 mmol/L (21-32); Chloride 106.0 mmol/L (98-107); Potassium 3.6 mmol/L (3.5-5.1); Sodium 139.0 mmol/L (136-145)
[2025-04-15 07:48] LABS: Blood Urea Nitrogen 5.0 mg/dl (6-23); Creatinine Clr Calc Pharmacy 130.8 ml/min; Glucose 85.0 mg/dl (70-99(Fasting))
--- NOTE | 2025-04-15 13:19 | Fluoroscopy Report ---
FL video swallow CLINICAL HISTORY: assess for aspiration. TECHNIQUE: Video fluoroscopic evaluation of swallowing was performed in the AP and lateral projection s by the speech pathology staff. The patient is fed nectar-thick and thin liquid barium, a barium coa yuniel wafer, and barium pudding. FLUOROSCOPY TIME: 1 minute 17 seconds. COMPARISON: None FINDINGS: There is aspiration with thin liquid through straw. No other aspiration seen. IMPRESSION: Aspiration with thin liquid. ACT 112: Negative or not required by law. Electronically signed by: Juan Cruz M.D. 04/15/2025 1:18 PM
--- NOTE | 2025-04-15 18:29 | Hospitalist Progress Note ---
Date of Service April 15, 2025 Assessment & Plan (1) Sepsis: (2) UTI (urinary tract infection): (3) RLL pneumonia: (4) Dementia: Plan Patient is a 69-year-old female with a past medical history of TBI/dementia, previously stated non-verbal, however able to communicate verbally with prompting. She presented via EMS from [facility] as they were concerned for a febrile seizure given she has a reported history of. She was found to meet SIRS criteria with a source secondary to UTI and possible right lower lobe pneumonia. #Sepsis/UTI/RLL PNA - UA concerning for infection with 2+ LE, >50 WBC, +4 bacteria. CXR read as nonspecific bibasilar opacities with small effusion (PNA cannot be excluded); reviewed personally and appears as though patient has RLL pneumonia. Non-hypoxic at time of admission, VBG WNL. Renal function stable. + SIRS: WBC 16.32 with neutrophil predominance, tachypneic (RR 28) tachycardic (rate 113), febrile 38.4C on arrival to ED - lactate 2.7 -> 2.1 after 1L NSS; peaked to 3.2 and now trended normal to 1.1 - procal 0.71 - Sepsis fluid bolus for actual body weight = 1983.00mL - given 1L NSS in ED - additional 1L NSS bolus ordered - Continue fluid resuscitation overnight with LR @ 125 ml/hr x 2L - No previous positive cultures within EMR - Given Rocephin 2G IV in the ED and pt started on Unasyn at the time of admission, change to Zosyn to cover broadly - MRSA neg - duo-nebs prn - Follow blood and urine culture NGTD - Trend CBC - Tylenol prn for fever - Given concern for aspiration and appears as though patient would be unable to tolerate p.o. intake based on clinical exam on admission Will make n.p.o., ho ld p.o. medications, aspiration precautions - baseline on thickened liquid with pureed diet - DINING ROOM ATTENDANT recs appreciated- s/p video swallow, she is noted to aspirate on thin liquid with straw. Recs thickened liquid with pureed diet #Hx TBI/moderate dementia with mood disturbances - Reportedly nonverbal at baseline. Responds to verbal stimuli, unable to follow commands on admission. - holding risperidone and Cymbalta with above - fall and aspiration precautions - at higher risk for hospital acquired delirium - promote good sleep wake cycles, oob as tolerated, etc. #Hx febrile seizures - sent from nursing facility due to concern for this with history. Unclear as to patient's history. - given patient's age, low concern - Tylenol prn VTE ppx: Lovenox daily Dispo: potential d/c on 04/16 Admission and Anticipated Discharge Date Admission Date: April 12, 2025 Subjective No complaints today Review of Systems Review of Systems: Comprehensive ROS completed and is otherwise negative. Physical Exam Physical Exam: Gen: no acute distress, lying in bed comfortable HEENT: NC/AT, MMM Lungs: nonlabored breathing, basilar crackles noted CVS: s1s2nl, RRR Abd: nl bowel sounds, soft, NT / ND : no arenas Ext: no edema Neuro: awake and follows commands and verbally answers questions Psych: calm, cooperative Results & Data Results & Data Vital Signs (Past 12 Hours) Vital Signs Temp Pulse Pulse Resp BP Pulse Ox O2 Del Method 04/15/25 15:50 36.5 C 74 18 121/86 96 Room Air 04/15/25 13:40 62 04/15/25 11:38 36.2 C L 75 16 117/66 94 Room Air 04/15/25 07:47 36.6 C 72 18 127/58 L 96 Room Air 04/15/25 07:00 67 PG Care Time/CCT Total # of Minutes Spent Total Time Spent with Patient: Total time spent is greater than 50% in coordination of care (as documented) at patient's floor/unit and/or counseling patient: Coding Level of Care Code 24007 SUB INP/OBS CARE 2/35MIN Diagnoses Sepsis A41.9 UTI (urinary tract infection) N39.0 RLL pneumonia J18.9 Dementia F03.90
[2025-04-16 07:24] LABS: Hematocrit (blood only) 37.7 % (37.0-47.0); Hemoglobin 13.0 g/dl (12.0-16.0); Mean Corpuscular Hemoglobin 30.6 pg (25.0-34.0); Mean Corpuscular Volume 88.7 fL (80.0-100.0); Platelet Count 221 K/uL (130-400); RDW Standard Deviation 45.6 fL (36.4-46.3); Red Blood Count 4.25 M/uL (4.20-5.40); White Blood Count 6.70 K/ul (4.8-10.8)
[2025-04-16 07:35] LABS: Anion Gap 6.0 (3-11); Calcium 8.2 mg/dl (8.6-10.3); Carbon Dioxide 27.0 mmol/L (21-32); Chloride 106.0 mmol/L (98-107); Magnesium 2.0 mg/dl (1.7-2.4); Potassium 3.4 mmol/L (3.5-5.1); Sodium 139.0 mmol/L (136-145)
[2025-04-16 07:40] LABS: Blood Urea Nitrogen 4.0 mg/dl (6-23); Creatinine Clr Calc Pharmacy 104.2 ml/min; Glucose 108.0 mg/dl (70-99(Fasting))
[2025-04-16] MEDS: POTASSIUM CHLORIDE / WTR 10 MEQ/100 ML PLCT IV SCH (08:38)
--- NOTE | 2025-04-16 11:37 | Discharge Summary ---
Discharge Summary Date of Service April 16, 2025 Principal Dx & Hospital Course #1 = Principal Diagnosis (1) Sepsis: (2) UTI (urinary tract infection): (3) RLL pneumonia: (4) Dementia: Plan Patient is a 69-year-old female with a past medical history of TBI/dementia, previously stated non-verbal, however able to communicate verbally with prompting. She presented via EMS from [facility] as they were concerned for a febrile seizure given she has a reported history of. She was found to meet SIRS criteria with a source secondary to UTI and possible right lower lobe pneumonia. Lactate was rising initially but improved with broadened abx coverage. Cultures have been unremarkable. Pt will be sent on augmentin bid x3 more days to complete 5 day course Pt had video swallow study done and recommended diet to be pureed with nectar thick diet. Spoke with pt's guardian Ricco Edmondson ([phone]). Discussed aspiration risk is not reduced by diet modification as pt can still aspirate on her own saliva. Furthermore, PEG placement / TFs will not reduce aspiration risk either. If patient is having frequent aspiration episodes, consider comfort care / hospice. #Sepsis/UTI/RLL PNA - UA concerning for infection with 2+ LE, >50 WBC, +4 bacteria. CXR read as nonspecific bibasilar opacities with small effusion (PNA cannot be excluded); reviewed personally and appears as though patient has RLL pneumonia. Non-hypoxic at time of admission, VBG WNL. Renal function stable. + SIRS: WBC 16.32 with neutrophil predominance, tachypneic (RR 28) tachycardic (rate 113), febrile 38.4C on arrival to ED - lactate 2.7 -> 2.1 after 1L NSS; peaked to 3.2 and now trended normal to 1.1 - procal 0.71 - Sepsis fluid bolus for actual body weight = 1983.00mL - given 1L NSS in ED - additional 1L NSS bolus ordered - Continue fluid resuscitation overnight with LR @ 125 ml/hr x 2L - No previous positive cultures within EMR - Given Rocephin 2G IV in the ED and pt started on Unasyn at the time of admissi on, change to Zosyn to cover broadly - MRSA neg - duo-nebs prn - blood and urine culture NGTD - Tylenol prn for fever - Given concern for aspiration and appears as though patient would be unable to tolerate p.o. intake based on clinical exam on admission Will make n.p.o., hold p.o. medications, aspiration precautions - baseline on thickened liquid with pureed diet - [facility] recs appreciated- s/p video swallow, she is noted to aspirate on thin liquid with straw. Recs thickened liquid with pureed diet - rpt CXR in 4-6 weeks #Hx TBI/moderate dementia with mood disturbances - Reportedly nonverbal at baseline. Responds to verbal stimuli, unable to follow commands on admission. - holding risperidone and Cymbalta with above - fall and aspiration precautions - at higher risk for hospital acquired delirium - promote good sleep wake cycles, oob as tolerated, etc. #Hx febrile seizures - sent from nursing facility due to concern for this with history. Unclear as to patient's history. - given patient's age, low concern - Tylenol prn Dispo: discharge back to [facility] Admission HPI Per Admitting Provider Patient is a 69-year-old female with a past medical history of TBI/dementia and is nonverbal at baseline. She presented via EMS from [facility] as they were concerned for a febrile seizure given she has a reported history of. She was found to meet SIRS criteria with a source secondary to UTI and possible right lower lobe pneumonia. Patient seen at bedside. She is nonverbal however responds to verbal stimuli. She is unable to follow any commands. There is no family at bedside. Report from [facility] reportedly that they were concerned about a febrile seizure because she has a history of. Unable to obtain any ROS. Medical records reviewed. POLST form reviewed DNR/DNI with limited measures, agreeable to IV ABX and IV fluids. Discharge Exam Gen: no acute distress, lying in bed comfortable HEENT: NC/AT, MMM Lungs: nonlabored breathing, basilar crackles noted CVS: s1s2nl, RRR Abd: nl bowel sounds, soft, NT / ND : no arenas Ext: no edema Neuro: awake and follows commands and verbally answers questions Psych: calm, cooperative Discharge Plan Discharge Items Patient Disposition: Transfer Nursing Home Fac Reason For Visit: SEPSIS, UTI, RLL PNA Discharge Diagnosis: Aspiration pna, sepsis Condition on Discharge: Fair Activity: Resume your previous activity Non-emergency contact: Primary Care Provider Call non-emergency contact if: you have any medication questions and your symptoms worsen Follow-up/Referrals: [facility] [Primary Care Provider] - Diet: Carb Consistent or DM2 Diet Texture: Pureed (blended smooth) Liquid Consistency: Marana thick Addtl Attending Provider Instructions: Cont antibiotics as prescribed Check BMP (blood work) in 3-5 days Please follow up with PCP in about 7 to 10 days Repeat CXR in 4-6 weeks Pending Studies at Discharge: Yes Studies:: Final blood culture report Stand-Alone Forms: [facility] Skilled Items Patient informed of condition?: Yes DNR: Yes Discharge Level of Care: Skilled Communicable Disease: No Discharge Prognosis: Stable Lines: None Urinary Catheter: No Medications and DC Order Prescriptions: New amoxicillin-pot clavulanate 875-125 mg tablet 1 tab PO BID 3 Days Qty: 6 0RF Continued Acetaminophen (Tylenol) 325 MG tablet 650 mg PO Q4H PRN (Reason: Pain or Fever) Qty: 0 Patient Comments: APPLY NEEDED FOR MILD PAIN OR FOR ELEVATED TEMPERATURE GREATER THAN 101 F. DO NOT EXCEED 3 GM APAP/24 HOURS. BISACODYL (DULCOLAX) 10 MG SUP 1 supp ID UD PRN (Reason: Constipation) Qty: 0 Patient Comments: NEEDED FOR NO BOWEL MOVEMENT IN 4 DAYS. MAGNESIUM HYDROXIDE (MILK OF MAGNESIA) 30 ML suspension 30 ml PO UD PRN (Reason: Constipation) Qty: 0 Patient Comments: NEEDED FOR NO BOWEL MOVEMENT IN 9 SHIFTS. Sodium Phosphate/Biphosphate (Fleet Enema) MELITA 1 dose ID UD PRN (Reason: Constipation) Qty: 0 Patient Comments: IF AFTER 4 HOURS DULCOLAX SUPPOSITORY WAS INEFFECTIVE GIVE FLEET ENEMA. Citalopram (Citalopram Hydrobromide) 40 MG tablet 1 tab PO DAILY 90 Days Qty: 90 ERGOCALCIFEROL (VITAMIN D 00774 UNIT) 50,000 UNIT capsule 50,000 unit PO DAILY Qty: 0 Multivitamin tablet 1 tab PO DAILY Qty: 0 Risperidone (Risperdal) 0.25 MG tablet 0.25 mg PO BID Qty: 0 Discharge Orders: Discharge Order (Routine); Ordered 04/16/25 Ordered By: Radha Quarles Admission Data Admit Date/Time: 04/12/25 22:16 Attending Provider: Charlie Cruz Admit Provider: Charlie Cruz [facility] Other Providers: Charlie Cruz Hospital Stay Data Consultations 04/12/25 21:52 ED Decision to Admit Stat Diagnostic Imagining Performed 04/15/25 09:30 FL video swallow Routine Pending Results Patient Have Any Pending Studies at Discharge: Yes Discharge Instructions Given to Patient (Per Discharging Provider) Cont antibiotics as prescribed Check BMP (blood work) in 3-5 days Please follow up with PCP in about 7 to 10 days Repeat CXR in 4-6 weeks Total Time Total Time Spent Total Time Spent (In Minutes): 45 Coding Level of Care Code 07253 INP/OBS DISCH >30 MIN Diagnoses Sepsis A41.9 UTI (urinary tract infection) N39.0 RLL pneumonia J18.9 Dementia F03.90
[2025-04-16 11:55] VITALS: BP 147/72; PULSE 75; RESP 20; TEMP 97.7; O2SAT 94
== END 2025-04-16 12:32 | DRG 871 ==
LOC: SUATTDRO → ED 19:09 → EDINP 22:16 → 2S 04-13 01:00